=== PATIENT | male | born 1965 | race Caucasian/White ===

== ENCOUNTER → 2020-11-02 | Outpatient (CLI) | payer OTHER ==
[~2020-11-02] MED LIST: ASPIRIN CHEWABL81 MG PO; ASPIRIN EC81 MG PO; ATORVASTATIN CA20 MG PO; BRILINTA 90 MG90 MG PO; BRILINTA90 MG PO; CARDIZEM CD120 MG PO; CARVEDILOL3.125 MG PO; IBUPROFEN200 MG PO; LIPITOR TAB 2020 MG PO; LISINOPRIL5 MG PO; NITROGLYCERIN0.4 MG SL; NITROSTAT0.4 MG SL; PROTONIX40 MG PO; VIBRAMYCIN100 MG PO
== END ==
LOC: HEART 5 09-28 15:30
DX: I25.10 Atherosclerotic heart disease of native coronary artery without angina pectoris (principal)
CPT/HCPCS: 93306

== ENCOUNTER 2021-07-30 04:05 | Emergency (ER) | payer OTHER ==
[2021-07-30 04:57] LABS: RED BLOOD COUNT 4.27 M/UL (4.20-5.50); WHITE BLOOD COUNT 10.5 K/UL (4.5-11.0)
[2021-07-30 05:25] LABS: BUN/CREATININE RATIO 11 (0-10)
[2021-07-30] MEDS ORDERED: PERCOCET 5-3251 EACH PO (06:42)
== END 2021-07-30 08:36 | disposition home or self-care (01) ==
LOC: ER1 04:05
PROVIDERS: Physician Assistant Medical
DX: S22.42XA Multiple fractures of ribs, left side, initial encounter for closed fracture (principal); S32.048A Other fracture of fourth lumbar vertebra, initial encounter for closed fracture; I10 Essential (primary) hypertension; F17.210 Nicotine dependence, cigarettes, uncomplicated; V86.99XA Unspecified occupant of other special all-terrain or other off-road motor vehicle injured in nontraffic accident, initial encounter
CPT/HCPCS: 70450; 71045; 71260; 72125; 72128; 72131; 73630; 80053; 85025; 96374; 96375; 99284; J2270; J2405; Q9967

== ENCOUNTER → 2022-02-14 | Outpatient (CLI) | payer OTHER ==
[~2022-02-14] MED LIST changes: +PERCOCET 5-3251 EACH PO
== END ==
LOC: KOH-I 14:26
DX: M54.59 Other low back pain (principal); M51.36 Other intervertebral disc degeneration, lumbar region; M51.37 Other intervertebral disc degeneration, lumbosacral region; M47.816 Spondylosis without myelopathy or radiculopathy, lumbar region
CPT/HCPCS: 72100

== ENCOUNTER → 2022-05-21 | Outpatient (CLI) | payer OTHER | LOC: HEART 5 08:30 | DX: R94.31 Abnormal electrocardiogram [ECG] [EKG] (principal); I10 Essential (primary) hypertension; I25.10 Atherosclerotic heart disease of native coronary artery without angina pectoris; Z98.61 Coronary angioplasty status | CPT/HCPCS: 78452; 93306; A9502 ==